=== PATIENT | male | born 1970 | race Caucasian/White ===

== ENCOUNTER 2022-03-25 10:58 | Inpatient (IN) | payer MEDICAID ==
[~2022-03-25] VITALS: Ht 167.6 cm; Wt 72.7 kg
[~2022-03-25 10:58] MED LIST: RANI150C11 PO
[2022-03-25 11:19] LABS: BASOPHILS # (AUTO) 0.1 X10'3 (0-0.2); EOSINOPHILS # (AUTO) 0.1 X10'3 (0-0.9); HEMATOCRIT 42.9 % (42.0-52.0); HEMOGLOBIN 14.7 g/dl (14.0-17.9); LYMPHOCYTES # (AUTO) 2.7 X10'3 (1.1-4.8); LYMPHOCYTES % (AUTO) 28.3 % (21-51); MEAN CORPUSCULAR HEMOGLOBIN 31.8 PG (27.0-31.0); MEAN CORPUSCULAR HGB CONC 34.3 g/dL (33.0-36.5); MEAN CORPUSCULAR VOLUME 92.7 FL (78-98); MEAN PLATELET VOLUME 6.8 FL (7.4-10.4); MONOCYTES # (AUTO) 0.7 X10'3 (0-0.9); MONOCYTES % (AUTO) 7.6 % (2-12); NEUTROPHILS # (AUTO) 5.9 X10'3 (1.8-7.7); NEUTROPHILS % (AUTO) 62.1 % (42-75); PLATELET COUNT 328 X10'3 (140-440); RED BLOOD COUNT 4.63 X10'6 (4.70-6.10); RED CELL DISTRIBUTION WIDTH 13.7 % (11.5-14.5); WHITE BLOOD COUNT 9.5 X10'3 (4.5-11.0)
[2022-03-25 11:32] LABS: APTT 30 SECONDS (22-32)
[2022-03-25 11:35] LABS: ALANINE AMINOTRANSFERASE 19 U/L (12-78); ALBUMIN 3.7 G/DL (3.4-5.0); ALKALINE PHOSPHATASE 63 IU/L (46-116); ANION GAP 5 (8-16); ASPARTATE AMINO TRANSFERASE 16 U/L (10-37); BILIRUBIN,TOTAL 0.9 MG/DL (0.1-1.0); BLOOD UREA NITROGEN 12 MG/DL (7-18); BUN/CREATININE RATIO 12.9 (5.4-32.0); CALCIUM 8.8 MG/DL (8.5-10.1); CHLORIDE 102 MMOL/L (99-107); CREATININE 0.93 MG/DL (0.60-1.10); GLUCOSE 91 MG/DL (70-104); POTASSIUM 3.8 MMOL/L (3.5-5.1); SODIUM 136 MMOL/L (135-145); TOTAL CARBON DIOXIDE 28.9 MMOL/L (24-32); TOTAL PROTEIN 7.5 G/DL (6.4-8.2); eGFR 86 ML/MIN
--- NOTE | 2022-03-25 11:37 | NUR ---
On [id number]
--- NOTE | 2022-03-25 11:38 | NUR ---
On going tele neuro.
[2022-03-25] MEDS ORDERED: aspirin 325mg tablet, delayed-release (Ecotrin) PO ONE (11:40)
--- NOTE | 2022-03-25 12:55 | NUR ---
MRI form faxed to mri.
--- NOTE | 2022-03-25 13:20 | NUR ---
AWAITING FOR HEEL PAINTER TO TAKE PATIENT.
--- NOTE | 2022-03-25 13:20 | NUR ---
PASSED BEDSIDE SWALLOW TEST.
[2022-03-25] MEDS ORDERED: magnesium Cl slow-release 64mg tablet PO PRN (14:45)
[2022-03-25] MEDS ORDERED: magnesium 4gm in 100ml NS 100 ML IV PRN (14:45)
[2022-03-25] MEDS ORDERED: POTASSIUM BICARB 20meq eff tab 20 MEQ TABLET.EFF PO PRN ×2 (14:45)
[2022-03-25] MEDS ORDERED: ondansetron/PF 4mg/2ml inj IV PRN (14:45)
[2022-03-25] MEDS ORDERED: acetaminophen 325mg tablet PO PRN ×2 (14:45)
[2022-03-25] MEDS ORDERED: magnesium hydroxide 30ml (MOM) UD suspension PO PRN (14:45)
[2022-03-25] MEDS ORDERED: magnesium 2GM in 50ml NS 50 ML IV PRN (14:45)
[2022-03-25] MEDS ORDERED: potassium CL 10mEq/100ml bag 100 ML IV PRN (14:45)
[2022-03-25] MEDS ORDERED: iohexol 350MG/ML 100ml bottle IV ONE (14:49)
[2022-03-25] MEDS: normal saline 1000ml 1,000 ML IV SCH (14:55)
--- NOTE | 2022-03-25 15:01 | NUR ---
patient to ct.
[2022-03-25] MEDS ORDERED: NO HOME MEDS (16:35)
[2022-03-25] MEDS: heparin, porcine 5000 units/ml vial SQ SCH (20:00)
[2022-03-25] MEDS: K and/or MAG REPLACEMENT MC SCH (20:00)
[2022-03-25] MEDS ORDERED: temazepam 15mg capsule PO PRN (21:00)
[2022-03-26] MEDS: normal saline 1000ml 1,000 ML IV SCH (05:35)
[2022-03-26 07:16] LABS: BASOPHILS # (AUTO) 0.1 X10'3 (0-0.2); BASOPHILS % (AUTO) 1.4 % (0-1); EOSINOPHILS # (AUTO) 0.2 X10'3 (0-0.9); EOSINOPHILS % (AUTO) 2.1 % (0-6); HEMATOCRIT 43.5 % (42.0-52.0); HEMOGLOBIN 14.9 g/dl (14.0-17.9); LYMPHOCYTES # (AUTO) 2.2 X10'3 (1.1-4.8); LYMPHOCYTES % (AUTO) 23.2 % (21-51); MEAN CORPUSCULAR HEMOGLOBIN 31.7 PG (27.0-31.0); MEAN CORPUSCULAR HGB CONC 34.2 g/dL (33.0-36.5); MEAN CORPUSCULAR VOLUME 92.5 FL (78-98); MEAN PLATELET VOLUME 7.1 FL (7.4-10.4); MONOCYTES # (AUTO) 0.9 X10'3 (0-0.9); MONOCYTES % (AUTO) 10.1 % (2-12); NEUTROPHILS # (AUTO) 5.9 X10'3 (1.8-7.7); NEUTROPHILS % (AUTO) 63.2 % (42-75); PLATELET COUNT 325 X10'3 (140-440); RED BLOOD COUNT 4.71 X10'6 (4.70-6.10); RED CELL DISTRIBUTION WIDTH 14.1 % (11.5-14.5); WHITE BLOOD COUNT 9.4 X10'3 (4.5-11.0)
[2022-03-26 07:18] VITALS: BP 116/75
[2022-03-26 07:29] LABS: ALANINE AMINOTRANSFERASE 17 U/L (12-78); ALBUMIN 3.5 G/DL (3.4-5.0); ALBUMIN/GLOBULIN RATIO 0.9 (1.1-1.5); ALKALINE PHOSPHATASE 65 IU/L (46-116); ANION GAP 7 (8-16); ASPARTATE AMINO TRANSFERASE 14 U/L (10-37); BILIRUBIN,TOTAL 0.6 MG/DL (0.1-1.0); BLOOD UREA NITROGEN 16 MG/DL (7-18); CALCIUM 8.7 MG/DL (8.5-10.1); CHLORIDE 107 MMOL/L (99-107); GLUCOSE 113 MG/DL (70-104); POTASSIUM 4.2 MMOL/L (3.5-5.1); SODIUM 143 MMOL/L (135-145); TOTAL CARBON DIOXIDE 29.3 MMOL/L (24-32); TOTAL PROTEIN 7.3 G/DL (6.4-8.2); eGFR 79 ML/MIN
[2022-03-26] MEDS: K and/or MAG REPLACEMENT MC SCH (08:00)
[2022-03-26] MEDS: heparin, porcine 5000 units/ml vial SQ SCH (08:00)
[2022-03-26] MEDS ORDERED: OMEP20CA15 PO (10:19)
[2022-03-26] MEDS ORDERED: ASPI81TA52 PO (10:19)
[2022-03-26] MEDS ORDERED: ACYC-126 PO (10:19)
== END 2022-03-26 10:15 | disposition home or self-care (01) | DRG 48 ==
LOC: ER 10:58 → ED HOLD 14:51
PROVIDERS: ADMIT Internal Medicine; ATTEND Internal Medicine
PROC: B3251ZZ Computerized Tomography (CT Scan) of Bilateral Common Carotid Arteries using Low Osmolar Contrast (ICD-10-PCS; principal; 2022-03-25)
PROC: B32G1ZZ Computerized Tomography (CT Scan) of Bilateral Vertebral Arteries using Low Osmolar Contrast (ICD-10-PCS; 2022-03-25)
PROC: B32R1ZZ Computerized Tomography (CT Scan) of Intracranial Arteries using Low Osmolar Contrast (ICD-10-PCS; 2022-03-25)
PROC: B3281ZZ Computerized Tomography (CT Scan) of Bilateral Internal Carotid Arteries using Low Osmolar Contrast (ICD-10-PCS; 2022-03-25)
DX: G51.0 Bell's palsy (principal); F10.90 Alcohol use, unspecified, uncomplicated; F17.210 Nicotine dependence, cigarettes, uncomplicated; F41.9 Anxiety disorder, unspecified; G89.29 Other chronic pain; M54.9 Dorsalgia, unspecified; R51.9 Headache, unspecified; Z88.5 Allergy status to narcotic agent; Z71.41 Alcohol abuse counseling and surveillance of alcoholic; Z71.6 Tobacco abuse counseling
CPT/HCPCS: 36415; 70450; 70496; 70498; 71045; 80053; 82948; 85025; 85610; 85730; 93005; 93306; 93880; 99285; G0378; J3490; J7030; Q9967